=== PATIENT | female | born 1990 | race Caucasian/White ===

== ENCOUNTER → 2017-04-04 21:15 | Emergency (ER) | payer SELFPAY ==
[2017-04-04 21:30] VITALS: BP 143/87
== END | disposition left against medical advice (07) ==
LOC: ED 21:15
DX: R10.84 Generalized abdominal pain (principal); R11.10 Vomiting, unspecified; Z53.21 Procedure and treatment not carried out due to patient leaving prior to being seen by health care provider

== ENCOUNTER → 2017-10-15 14:22 | Emergency (ER) | payer SELFPAY ==
[~2017-10-15 14:22] MED LIST: Ketorolac INJ* 30 MG/ML 1 ML VIAL IV PUSH ONE; Lidocaine 1% INJ* 10 MG/ML 30 ML SDV INJ ONE; NS 0.9% 1000 ML*IV.FLUID IV ONE; Ondansetron INJ* 2 MG/ML VIAL IV ONE; Sulfamethox/Trimethoprim DS 800/160* TAB PO ONE; ceFAZolin 1 GM VIAL(*) 1 GM in NS 0.9% 50 ML* 50 ML IVPB ONE; oxyCODONE/Acetamin 5/325 MG* TAB PO ONE
--- NOTE | 2017-10-15 15:04 | ED ---
Skin Complaint - HPI Summary HPI Summary: 27F presents with abscess on right hip for 3 days. She states it started as a bug bite. She states the swelling to the area has gradually increased. She states she has become nauseous and vomiting from the pain. She admits to fever and chills. She denies any history of MRSA. She denies any abdominal pain, dysuria, cough, chest pain, SOB, flank pain, diarrhea or constipations. She has not taken anything for pain. pain is 10/10. She has no medical conditions. - History of Current Complaint Chief Complaint: EDNauseaVomitDiarrh Time Seen by Provider: 10/15/17 14:30 Stated Complaint: POSSIBLE INFECTION/VOMITTING Pain Intensity: 9 - Allergy/Home Medications Allergies/Adverse Reactions: Allergies Allergy/AdvReac Type Severity Reaction Status Date / Time Azithromycin Allergy Hives Verified 10/15/17 14:26 Nitrofurantoin Allergy Rash Verified 10/15/17 14:27 [From Macrobid] PMH/Surg Hx/FS Hx/Imm Hx Endocrine/Hematology History: Denies: Hx Anticoagulant Therapy, Hx Diabetes Cardiovascular History: Denies: Hx Hypertension Infectious Disease History: No Infectious Disease History: Denies: Traveled Outside the [place] in Last 30 Days - Family History Known Family History: Negative: Diabetes - Social History Alcohol Use: None Substance Use Type: Reports: None Smoking Status (MU): Light Every Day Tobacco Smoker Review of Systems Positive: Fever Negative: Chest Pain Negative: Shortness Of Breath Positive: Rash All Other Systems Reviewed And Are Negative: Yes Physical Exam Triage Information Reviewed: Yes Vital Signs On Initial Exam: Initial Vitals Temp Pulse Resp BP Pulse Ox 99.5 F 68 18 113/63 96 10/15/17 14:23 10/15/17 14:23 10/15/17 14:23 10/15/17 14:23 10/15/17 14:23 Vital Signs Reviewed: Yes Appearance: Positive: Well-Appearing Skin: Positive: Warm, Dry, Other - 4cm by 6cm area of eythema and loculation with minmial surround erythema on right hip Head/Face: Positive: Normal Head/Face Inspection Eyes: Positive: Normal, EOMI, JANES, Conjunctiva Clear ENT: Positive: Normal ENT inspection, Pharynx normal, TMs normal Respiratory/Lung Sounds: Positive: Clear to Auscultation, Breath Sounds Present Cardiovascular: Positive: Normal, RRR Abdomen Description: Positive: Nontender, Soft Bowel Sounds: Positive: Present Musculoskeletal: Positive: Normal, Strength/ROM Intact - right hip Neurological: Positive: Normal Psychiatric: Positive: Normal - Zack Coma Scale Coma Scale Total: 15 Procedures - Incision and Drainage Site: right hip Anesthesia: Local Instrument(s): Scalpel Diagnostics - Vital Signs Vital Signs Temp Pulse Resp BP Pulse Ox 10/15/17 14:23 99.5 F 68 18 113/63 96 - Laboratory Result Diagrams: 10/15/17 15:05 10/15/17 15:05 Lab Statement: Any lab studies that have been ordered have been reviewed, and results considered in the medical decision making process. Course/Dx - Course Course Of Treatment: 27F presents with abscess on right hip for 3 days. She states it started as a bug bite. She states the swelling to the area has gradually increased. She states she has become nauseous and vomiting from the pain. She admits to fever and chills. She denies any history of MRSA. She denies any abdominal pain, dysuria, cough, chest pain, SOB, flank pain, diarrhea or constipations. She has not taken anything for pain. pain is 10/ 10. She has no medical conditions. on exam has 4cm by 6cm abscess on right hip with minimial surround erythema. abdomen soft nontender. got septic work to be on safe side and gave dose of ancef. I&D abscess and got moderate amount of pus. patient does not currently have a fever and feels comfortable being discharge. can follow up with primary. will place on bactrim and keflex. patient understand and agrees with plan. - Differential Diagnoses - Skin Complaint Differential Diagnoses: Abscess, Cellulitis, Local Allergic Reaction - Diagnoses Provider Diagnoses: Abscess of right hip Discharge - Discharge Plan Condition: Good Disposition: HOME Prescriptions: Cephalexin CAP* [Keflex CAP*] 500 mg PO BID #19 cap Ondansetron ODT TAB* [Zofran 4 MG Odt TAB*] 4 mg PO Q6H PRN #20 tab.odt PRN Reason: Nausea Sulfamethox/Trimethoprim DS* [Bactrim DS 800/160 TAB*] 1 tab PO BID #19 tab Patient Education Materials: Abscess (ED) Forms: *Work Release Referrals: Edgar Foy MD [Primary Care Provider] - Additional Instructions: Take antibiotic both twice a day for 10 days, Apply warm compresses to area Take ibuprofen or Tylenol for pain every 6 hours Follow up with primary within 5 days Return to ED if develop fever, area of redness spreads, or any new or worsening symptoms
[2017-10-15 15:15] LABS: Hematocrit 41 % (35-47); Hemoglobin 13.7 g/dl (12.0-16.0); Mean Corpuscular HGB Conc 33 g/dl (31-36); Mean Corpuscular Hemoglobin 31 pg (27-31); Mean Corpuscular Volume 92 fL (80-97); Mean Platelet Volume 9 um3 (7.4-10.4); Red Blood Count 4.47 10^6/ul (4.0-5.4); Red Cell Distribution Width 14 % (10.5-15); White Blood Count 16.6 10^3/ul (3.5-10.8)
[2017-10-15 15:30] LABS: Albumin 4.4 g/dL (3.2-5.2); BUN/Creatinine Ratio 12.9 (8-20); Calcium 9.4 mg/dL (8.6-10.3); EGFR African American 150.8 (>60); EGFR Non-African American 117.3 (>60); Globulin 3.1 g/dL (2-4); Potassium 3.9 mmol/L (3.5-5.0); Total Bilirubin 0.6 mg/dL (0.2-1.0); Total Protein 7.5 g/dL (6.4-8.9)
[2017-10-15 17:00] VITALS: BP 95/71
--- NOTE | 2017-10-16 09:10 | ED ---
Progress - Progress Note Progress Note: Pt's cx reveals MRSA and staph aureus - d/c'd w/ bactrim and keflex. No change at this time. Course/Dx - Course Course Of Treatment: 27F presents with abscess on right hip for 3 days. She states it started as a bug bite. She states the swelling to the area has gradually increased. She states she has become nauseous and vomiting from the pain. She admits to fever and chills. She denies any history of MRSA. She denies any abdominal pain, dysuria, cough, chest pain, SOB, flank pain, diarrhea or constipations. She has not taken anything for pain. pain is 10/ 10. She has no medical conditions. on exam has 4cm by 6cm abscess on right hip with minimial surround erythema. abdomen soft nontender. got septic work to be on safe side and gave dose of ancef. I&D abscess and got moderate amount of pus. patient does not currently have a fever and feels comfortable being discharge. can follow up with primary. will place on bactrim and keflex. patient understand and agrees with plan. - Diagnoses Provider Diagnoses: Abscess of right hip
--- NOTE | 2017-10-18 08:47 | PN ---
Progress Note - Progress Note Date of Service: 10/18/17 Note: patient placed on bactrim which final wound culture shows that is sensitive to. no further action required.
== END | disposition home or self-care (01) ==
LOC: ED 14:22
DX: L02.415 Cutaneous abscess of right lower limb (principal); R50.9 Fever, unspecified; F17.210 Nicotine dependence, cigarettes, uncomplicated
CPT/HCPCS: 10060; 36415; 80053; 83605; 85025; 86141; 87040; 87070; 87077; 87186; 87205; 87640; 87641; 96374; 96375; 99282; A9270-GY; J0690; J1885; J2001; J2405

== ENCOUNTER 2018-05-07 15:45 | Emergency (ER) | payer BC, OTHER ==
[2018-05-07] MEDS ORDERED: NS 0.9% 1000 ML* 1,000 ML IV ONE (15:54)
[2018-05-07] MEDS ORDERED: cefTRIAXone(*) 1 GM in NS 0.9% 50 ML* 50 ML IVPB ONE ×2 (15:54→18:56)
[2018-05-07 16:48] LABS: ABS Basophils 0 10^3/ul (0-0.2); ABS Eosinophils 0.1 10^3/ul (0-0.6); ABS Lymphocytes 1.2 10^3/ul (1.0-4.8); ABS Monocytes 0.8 10^3/ul (0-0.8); ABS Neutrophils 10.5 10^3/ul (1.5-7.7); ABS Nucleated RBC 0 10^3/ul; Eosinophil % 0.4 % (0-6); Hematocrit 33 % (35-47); Hemoglobin 11.4 g/dl (12.0-16.0); Lymphocyte % 9.9 % (25-47); Mean Corpuscular HGB Conc 35 g/dl (31-36); Mean Corpuscular Hemoglobin 33 pg (27-31); Mean Corpuscular Volume 95 fL (80-97); Mean Platelet Volume 8.6 um3 (7.4-10.4); Nucleated Red Blood Cells % 0; Platelet Count 162 10^3/ul (150-450); Red Blood Count 3.48 10^6/ul (4.0-5.4); Red Cell Distribution Width 13 % (10.5-15); White Blood Count 12.6 10^3/ul (3.5-10.8)
[2018-05-07] MEDS ORDERED: Ondansetron ODT TAB* 4 MG PO ONE (16:48)
[2018-05-07 17:10] LABS: EGFR Non-African American 153.9 (>60)
[2018-05-07 18:03] LABS: Urine Appearance Clear; Urine Blood Negative (Negative); Urine Color Yellow; Urine Ketones 2+ (Negative); Urine Protein 1+(30 mg/dL) (Negative); Urine Specific Gravity 1.019 (1.010-1.030); Urine Urobilinogen Negative (Negative)
--- NOTE | 2018-05-07 18:56 | RAD ---
Indication: Flank pain. Real-time sonography of the kidneys was performed. The right kidney measures 10.8 x 5.6 x 5.4 cm. The left kidney measures 9.3 x 4.4 x 5.4 cm. No hydronephrosis is noted in either kidney. IMPRESSION: NO HYDRONEPHROSIS OF EITHER KIDNEY IS NOTED.
[2018-05-07] MEDS ORDERED: Acetaminophen TAB* 325 MG PO ONE (19:41)
--- NOTE | 2018-05-07 19:46 | ED ---
Ephraim Villeda Tiffany, scribed for Erick Perez MD on 05/07/18 at 1602 . Abdominal Pain/Female - HPI Summary HPI Summary: 27 year old F BIBA to [facility] complains of left flank pain that began at 08:00 this morning, radiates to the right flank. Rates the pain 6/10 in severity. Symptoms aggravated by nothing. Symptoms alleviated by nothing. Patient reports nausea, vomiting, back pain, fever, urinary frequency, burning with urination. Denies vaginal discharge and vaginal bleeding. Dx UTI 3 days ago, symptoms have worsened despite taking Keflex. Is 26 weeks . Has not felt baby move since this morning. /A0. Hx opioid abuse, has been sober for 4 months. - History of Current Complaint Stated Complaint: BACK PAINS Time Seen by Provider: 05/07/18 15:48 Hx Obtained From: Patient Onset/Duration: Lasting Hours - since this morning, Still Present Location: Flank - left Radiates: Yes Radiates to: Flank - right Aggravating Factor(s): Nothing Alleviating Factor(s): Nothing Associated Signs and Symptoms: Positive: Negative - vaginal discharge and vaginal bleeding, Other: - nausea, vomiting, back pain, fever, urinary frequency , burning with urination Allergies/Adverse Reactions: Allergies Allergy/AdvReac Type Severity Reaction Status Date / Time MS Azithromycin Allergy Hives Verified 10/15/17 14:26 [Azithromycin] MS Nitrofurantoin Allergy Rash Verified 10/15/17 14:27 [From Macrobid] Home Medications: Home Medications Bupropion XL* [Wellbutrin XL *] 150 mg PO DAILY 05/07/18 [History Confirmed 07/17] Cholecalciferol (Vitamin D3) [ Vitamin D3] 2,000 unit PO DAILY 05/07/18 [ History Confirmed 05/07/18] Vit 93/Iron Fum/Folic [ Formula A-Free] 1 tab PO DAILY [History Confirmed 05/07/18] PMH/Surg Hx/FS Hx/Imm Hx Previously Healthy: No Endocrine/Hematology History: Denies: Hx Anticoagulant Therapy, Hx Diabetes Cardiovascular History: Denies: Hx Hypertension History: Reports: Other Problems/Disorders - UTI Psychiatric History: Reports: Hx Substance Abuse - opioid - Family History Known Family History: Negative: Diabetes - Social History Alcohol Use: None Hx Substance Use: Yes Substance Use Type: Reports: Other - opioid Hx Tobacco Use: Yes Smoking Status (MU): Light Every Day Tobacco Smoker Review of Systems Positive: Fever Positive: Vomiting, Nausea Positive: burning, frequency, flank pain - left, radiating to right flank, other - NEGATIVE: vaginal bleeding, vaginal discharge Positive: Other - back pain All Other Systems Reviewed And Are Negative: Yes Physical Exam - Summary Physical Exam Summary: VITAL SIGNS: Reviewed. GENERAL: Patient is a well-developed and nourished (MALE OR FEMALE) who is lying comfortable in the stretcher. Patient is not in any acute respiratory distress. HEAD AND FACE: No signs of trauma. No ecchymosis, hematomas or skull depressions. No sinus tenderness. EYES: PERRLA, EOMI x 2, No injected conjunctiva, no nystagmus. EARS: Hearing grossly intact. Ear canals and tympanic membranes are within normal limits. MOUTH: Oropharynx within normal limits. NECK: Supple, trachea is midline, no adenopathy, no JVD, no carotid bruit, no c- spine tenderness, neck with full ROM. CHEST: Symmetric, no tenderness at palpation LUNGS: Clear to auscultation bilaterally. No wheezing or crackles. CVS: The patient is tachycardic. ABDOMEN: The patient has bilateral flank pain. Her abdomen is distended about the umbilicus consistent with 26-week . EXTREMITIES: FROM in all major joints, no edema, no cyanosis or clubbing. NEURO: Alert and oriented x 3. No acute neurological deficits. Speech is normal and follows commands. SKIN: Dry and warm Triage Information Reviewed: Yes Vital Signs On Initial Exam: Initial Vitals Temp Pulse Resp BP Pulse Ox 98.2 F 102 16 111/76 97 05/07/18 15:57 05/07/18 15:57 05/07/18 15:57 05/07/18 15:57 05/07/18 15:57 Vital Signs Reviewed: Yes Diagnostics - Vital Signs Vital Signs Temp Pulse Resp BP Pulse Ox 05/07/18 15:57 98.2 F 102 16 111/76 97 - Laboratory Lab Results: Lab Results 05/07/18 05/07/18 05/07/18 Range/Units 16:34 16:34 16:34 WBC 12.6 H (3.5-10.8) 10^3/ul RBC 3.48 L (4.0-5.4) 10^6/ul Hgb 11.4 L (12.0-16.0) g/dl Hct 33 L (35-47) % MCV 95 (80-97) fL MCH 33 H (27-31) pg MCHC 35 (31-36) g/dl RDW 13 (10.5-15) % Plt Count 162 (150-450) 10^3/ul MPV 8.6 (7.4-10.4) um3 Neut % (Auto) 83.0 (38-83) % Lymph % (Auto) 9.9 L (25-47) % Hamilton % (Auto) 6.5 (0-7) % Eos % (Auto) 0.4 (0-6) % Baso % (Auto) 0.2 (0-2) % Absolute Neuts (auto) 10.5 H (1.5-7.7) 10^3/ul Absolute Lymphs (auto) 1.2 (1.0-4.8) 10^3/ul Absolute Monos (auto) 0.8 (0-0.8) 10^3/ul Absolute Eos (auto) 0.1 (0-0.6) 10^3/ul Absolute Basos (auto) 0 (0-0.2) 10^3/ul Absolute Nucleated RBC 0 10^3/ul Nucleated RBC % 0 Sodium 134 L (139-145) mmol/L Potassium 3.7 (3.5-5.0) mmol/L Chloride 102 (101-111) mmol/L Carbon Dioxide 18 L (22-32) mmol/L Anion Gap 14 H (2-11) mmol/L BUN 11 (6-24) mg/dL Creatinine 0.49 L (0.51-0.95) mg/dL Est GFR ( Amer) 197.9 (>60) Est GFR (Non-Af Amer) 153.9 (>60) BUN/Creatinine Ratio 22.4 H (8-20) Glucose 69 L (70-100) mg/dL Lactic Acid 0.6 (0.5-2.0) mmol/L Calcium 8.6 (8.6-10.3) mg/dL Total Bilirubin 0.50 (0.2-1.0) mg/dL AST 12 L (13-39) U/L ALT 8 (7-52) U/L Alkaline Phosphatase 76 (34-104) U/L C-Reactive Protein 149.02 H (< 5.00) mg/L Total Protein 6.5 (6.4-8.9) g/dL Albumin 3.4 (3.2-5.2) g/dL Globulin 3.1 (2-4) g/dL Albumin/Globulin Ratio 1.1 (1-3) Lipase < 10 L (11.0-82.0) U/L Urine Color Urine Appearance Urine pH (5-9) Ur Specific Brea (1.010-1.030) Urine Protein (Negative) Urine Ketones (Negative) Urine Blood (Negative) Urine Nitrate (Negative) Urine Bilirubin (Negative) Urine Urobilinogen (Negative) Ur Leukocyte Esterase (Negative) Urine WBC (Auto) (Absent) Urine RBC (Auto) (Absent) Ur Squamous Epith Cells (Absent) Urine Bacteria (Absent) Urine Glucose (Negative) Urine Ascorbic Acid (Negative) 05/07/18 Range/Units 17:43 WBC (3.5-10.8) 10^3/ul RBC (4.0-5.4) 10^6/ul Hgb (12.0-16.0) g/dl Hct (35-47) % MCV (80-97) fL MCH (27-31) pg MCHC (31-36) g/dl RDW (10.5-15) % Plt Count (150-450) 10^3/ul MPV (7.4-10.4) um3 Neut % (Auto) (38-83) % Lymph % (Auto) (25-47) % Hamilton % (Auto) (0-7) % Eos % (Auto) (0-6) % Baso % (Auto) (0-2) % Absolute Neuts (auto) (1.5-7.7) 10^3/ul Absolute Lymphs (auto) (1.0-4.8) 10^3/ul Absolute Monos (auto) (0-0.8) 10^3/ul Absolute Eos (auto) (0-0.6) 10^3/ul Absolute Basos (auto) (0-0.2) 10^3/ul Absolute Nucleated RBC 10^3/ul Nucleated RBC % Sodium (139-145) mmol/L Potassium (3.5-5.0) mmol/L Chloride (101-111) mmol/L Carbon Dioxide (22-32) mmol/L Anion Gap (2-11) mmol/L BUN (6-24) mg/dL Creatinine (0.51-0.95) mg/dL Est GFR ( Amer) (>60) Est GFR (Non-Af Amer) (>60) BUN/Creatinine Ratio (8-20) Glucose (70-100) mg/dL Lactic Acid (0.5-2.0) mmol/L Calcium (8.6-10.3) mg/dL Total Bilirubin (0.2-1.0) mg/dL AST (13-39) U/L ALT (7-52) U/L Alkaline Phosphatase (34-104) U/L C-Reactive Protein (< 5.00) mg/L Total Protein (6.4-8.9) g/dL Albumin (3.2-5.2) g/dL Globulin (2-4) g/dL Albumin/Globulin Ratio (1-3) Lipase (11.0-82.0) U/L Urine Color Yellow Urine Appearance Clear Urine pH 5.0 (5-9) Ur Specific Brea 1.019 (1.010-1.030) Urine Protein 1+(30 mg/dl) A (Negative) Urine Ketones 2+ A (Negative) Urine Blood Negative (Negative) Urine Nitrate Negative (Negative) Urine Bilirubin Negative (Negative) Urine Urobilinogen Negative (Negative) Ur Leukocyte Esterase Trace A (Negative) Urine WBC (Auto) 1+(6-10/hpf) A (Absent) Urine RBC (Auto) 1+(3-5/hpf) A (Absent) Ur Squamous Epith Cells Present A (Absent) Urine Bacteria 2+ A (Absent) Urine Glucose Negative (Negative) Urine Ascorbic Acid * A (Negative) Result Diagrams: 05/07/18 16:34 05/07/18 16:34 Lab Statement: Any lab studies that have been ordered have been reviewed, and results considered in the medical decision making process. - Additional Comments Diagnostic Additional Comments: Renal US, per radiologist, shows NO HYDRONEPHROSIS OF EITHER KIDNEY IS NOTED. ED physician has reviewed this report. Abdominal Pain Fem Course/Dx - Course Course Of Treatment: This patient is a 27-year-old female who is 26 weeks presents to the emergency room via ambulance complaining that the patient has a UTI and she continues to have fevers, chills, nausea vomiting, and lower back pain. The patient reports that she is taking Keflex for approximately 3 days but the symptoms are getting worse. She states she was seen by the midwives and was sent to the restroom for further assessment. [place] shows a WBCs of 12.6 without bands, sodium 134, glucose 69, CRP of 149, urinalysis shows 1+ protein and 2+ ketones, trace leukocyte esterase, Newley has 1+ WBCs and 1+ red blood cells, squamous epithelial cells Presson and 2+ bacteria. Initially the patient was given IV fluids, she was given Rocephin and Zofran for the nausea and vomiting. At this time I discussed the case with Dr. Cortez and she requests for the patient to be discharged home at that she gets a renal ultrasound. Renal ultrasound impression no hydronephrosis of either kidney is noted. At this point the patient is eating and drinking and she has no nausea vomiting. Therefore Dr. Cortez requested for the patient discharged home with follow-up with her office. I gave her specific instructions to the patient that if she has more back pain, nausea vomiting, fevers the patient and shell return immediately to the emergency room for further workup and management. The patient understands and agrees. I discussed all the findings and test results with the patient. Patient was instructed to return to the emergency room immediately if any of the symptoms return or worsens. Plan of care was discussed with the patient and understands and agrees. All questions were answered at patient satisfaction. There were no further complaints or concerns. - Diagnoses Provider Diagnoses: UTI (urinary tract infection), Pyelonephritis - Provider Notifications Discussed Care Of Patient With: Minda Cortez Time Discussed With Above Provider: 17:58 Instructed by Provider To: Other - Dr. Cortez, [facility], recommends renal US. She was informed of patient's lab results. She recommends discharge, if US is negative, with prescription for Zofran and to continue PO antibiotics. Discharge - Sign-Out/Discharge Documenting (check all that apply): Discharge/Admit/Transfer - Discharge Plan Condition: Stable Disposition: HOME Prescriptions: Ondansetron ODT TAB* [Zofran 4 MG Odt TAB*] 4 mg PO Q8H PRN #10 tab.odt PRN Reason: Vomiting Patient Education Materials: Urinary Tract Infection in (ED) Referrals: Edgar Foy MD [Primary Care Provider] - Minda Cortez MD [Medical Doctor] - 3 Days Additional Instructions: FOLLOW UP WITH [facility], IN 3 DAYS. RETURN TO THE EMERGENCY DEPARTMENT FOR ANY WORSENING OR NEW SYMPTOMS. - Billing Disposition and Condition Condition: STABLE Disposition: Home The documentation as recorded by the Ephraim sheldon Tiffany accurately reflects the service I personally performed and the decisions made by , Erick Perez MD.
[2018-05-07 20:03] VITALS: BP 89/73
== END 2018-05-07 19:59 | disposition home or self-care (01) ==
LOC: ED 15:45
DX: O23.02 Infections of kidney in pregnancy, second trimester (principal); O23.42 Unspecified infection of urinary tract in pregnancy, second trimester; O99.332 Smoking (tobacco) complicating pregnancy, second trimester; F17.200 Nicotine dependence, unspecified, uncomplicated; Z3A.26 26 weeks gestation of pregnancy; Z88.3 Allergy status to other anti-infective agents; Z88.8 Allergy status to other drugs, medicaments and biological substances
CPT/HCPCS: 36415; 76775; 80053; 81003; 81015; 83605; 83690; 85025; 86140; 87040; 87086; 96361; 96365; 99283; A9270-GY; J0696

== ENCOUNTER 2018-07-31 00:34 | Inpatient (IN) | payer OTHER ==
[2018-07-31 00:56] LABS: Hematocrit 31 % (35-47); Hemoglobin 10.5 g/dl (12.0-16.0); Mean Corpuscular HGB Conc 34 g/dl (31-36); Mean Corpuscular Hemoglobin 30 pg (27-31); Mean Corpuscular Volume 88 fL (80-97); Mean Platelet Volume 8.9 um3 (7.4-10.4); Platelet Count 155 10^3/ul (150-450); Red Blood Count 3.55 10^6/ul (4.00-5.40); Red Cell Distribution Width 13 % (10.5-15); White Blood Count 8.1 10^3/ul (3.5-10.8)
--- NOTE | 2018-07-31 02:13 | HP ---
General Information - Reason for Visit Patient is currently 37 2/7 weeks who presented with complaints of LOF and vaginal bleeding. - General Information Maternal Age: 28 Grav: 4 Para: 3 SAB: 0 IEA: 0 Estimated Due Date: 08/18/18 Determined By: 20 week Gestational Age in Weeks/Days: 37 2/7 Maternal Blood Type and Rh: A Positive - Results this Serology/RPR Result: Non-Reactive Rubella Result: Immune HBsAg Result: Negative HIV Result: Negative GBS Culture Result: Negative Past Medical History Delivery History: Hx C/Section, See Records Pertinent Past Medical History: See Records Past Medical History Comment: Medical history Hx of brain tumor( malignant per patient-unable to confirm via records) Migraine headaches Pyelonephritis Bipolar disorder Depression Substance abuse disorder (THC, Opiates, Cocaine) currently on Subutex on Rehab at [facility]. Asthma Past Surgical History Comment: Section 2016 Appendectomy Removal of intestinal cyst Pertinent Family History: See Records - Epilepsy - Antepartal Records Antepartal Records: Reviewed, Complicated by: - Poor compliance with care, Prior section, Tobacco use disorder Review of Systems Constitutional: Comfortable CV Complaint: No Respiratory: Shortness of Breath: No Gastrointestinal: No Nausea/Vomiting, Normal Bowel Movement Genitourinary: Bleeding, Leaking Fluid - Grossly ruptured Musculoskeletal: No Complaint, No Epigastric Pain Neurological: No Headache, No Visual Changes Movement: Normal Exam Allergies/Adverse Reactions: Allergies azithromycin Allergy (Verified 07/31/18 00:43) Nausea And Vomiting nitrofurantoin [From Macrobid] Allergy (Verified 07/31/18 00:43) Nausea And Vomiting Temp 97.8 BP 120 78 P 82 RR 16 POx 100% RA Lab Values - Entire Visit: Laboratory Tests 07/31/18 07/31/18 00:48 00:48 WBC 8.1 RBC 3.55 L Hgb 10.5 L Hct 31 L MCV 88 MCH 30 MCHC 34 RDW 13 Plt Count 155 MPV 8.9 Blood Type A Positive - Measurements Height: 5 ft Weight: 150 lb Weight in lbs: [id number] Body Mass Index (BMI): 29.2 Pre- Weight: 115 lb Weight Gained This : 35 lbs and 0 ozs - Exam Breast: Breast Exam Deferred CVA: No CVA Tenderness Extremities: No Edema Heart: Normal Rhythm/Heart Sounds HEENT: No Significant Findings Lungs: Clear Bilaterally Rectal: Rectal Exam Deferred Reflexes: DTR 2+ Thyroid: No Thyromegaly - Abdominal Exam Abdomen Exam: Non-Tender, Fundal Height Consistent with Dates Targeted Exam Findings See L&D Outpatient Visit Provider Note for Findings: N/A Cervical Exam: 1cm Effacement: Thick Station: -3 Presenting Part: Vertex Membrane Status: SROM Amniotic Fluid Evaluation: Gross Rupture, Clear, Bloody EFM Findings - External Monitor Findings Baseline Heart Rate: 140 External Monitor Findings: Accelerations Present Contractions: Irregular Assessment/Plan - Obstetrical Risk Factors Obstetrical Risk Factors: Substance Abuse, Tobacco Use Risk Factors Comment: Prior Section desires - Plan Plan: IV Hydration, Admit - Anticipate Vaginal Delivery - Date/Time of Admission Date of Admission: 07/31/18 Time of Admission: 02:00
[2018-07-31] MEDS ORDERED: Calcium Carbonate CHEW TAB* 500 MG (TUMS) ONE ×2 (07:11→12:31)
[2018-07-31] MEDS: Buprenorphine TAB* 2 MG TAB.SL SL SCH (11:39)
[2018-07-31] MEDS ORDERED: Oxytocin in LR* 20 UNITS/1,000 ML BAG IVPB SCH (18:00)
[2018-07-31] MEDS ORDERED: Promethazine INJ(RESTRICTED)* 25 MG/ML 1 ML VIAL IV PRN (21:15)
[2018-07-31] MEDS: Nalbuphine* 10 MG/ML 1 ML VIAL IV PRN (21:28)
[2018-08-01] MEDS: Calcium Carbonate CHEW TAB* 500 MG (TUMS) PO PRN ×2 (04:18→15:42)
[2018-08-01] MEDS ORDERED: Nalbuphine* 10 MG/ML 1 ML VIAL IV PRN (05:03)
[2018-08-01] MEDS ORDERED: Promethazine INJ(RESTRICTED)* 25 MG/ML 1 ML VIAL IV PRN (05:03)
[2018-08-01 08:09] LABS: ABS Basophils 0 10^3/ul (0-0.2); ABS Eosinophils 0.1 10^3/ul (0-0.6); ABS Lymphocytes 1.9 10^3/ul (1.0-4.8); ABS Monocytes 0.5 10^3/ul (0-0.8); ABS Neutrophils 4.8 10^3/ul (1.5-7.7); ABS Nucleated RBC 0 10^3/ul; Eosinophil % 1.7 % (0-6); Hematocrit 27 % (35-47); Lymphocyte % 26.1 % (25-47); Mean Corpuscular HGB Conc 34 g/dl (31-36); Mean Corpuscular Hemoglobin 30 pg (27-31); Mean Corpuscular Volume 88 fL (80-97); Mean Platelet Volume 9.2 um3 (7.4-10.4); Nucleated Red Blood Cells % 0.1; Platelet Count 133 10^3/ul (150-450); Red Blood Count 3.03 10^6/ul (4.00-5.40); Red Cell Distribution Width 13 % (10.5-15); White Blood Count 7.4 10^3/ul (3.5-10.8)
[2018-08-01] MEDS ORDERED: Sodium Citrate/Citric Acid* 15 ML UDC ONE (08:09)
[2018-08-01] MEDS ORDERED: ceFOXitin 2 GM IVPREMIX* 2 GM/50 ML BAG ONE (08:11)
[2018-08-01] MEDS ORDERED: Chloroprocaine 3%* 20 ML VIAL ONE (08:24)
[2018-08-01] MEDS ORDERED: OXYTOCIN* 10 UNITS/ML 1 ML VIAL ONE (08:25)
[2018-08-01] MEDS ORDERED: Dexamethasone IV* 4 MG/ML 1 ML (4 MG) ONE (08:25)
[2018-08-01] MEDS ORDERED: Ondansetron INJ* 2 MG/ML VIAL ONE (08:25)
[2018-08-01] MEDS ORDERED: fentaNYL* 50 MCG/ML 2 ML VIAL (100 MCG VIAL) ONE (09:01)
[2018-08-01] MEDS ORDERED: Phenylephrine IV* 40 MCG/ML 10 ML SYRINGE ONE (09:21)
[2018-08-01] MEDS ORDERED: DiMENhydriNATE IV* 50 MG/ML VIAL IV PUSH PRN (09:34)
[2018-08-01] MEDS ORDERED: Naloxone* 0.4 MG/ML 1 ML VIAL IV PRN (09:34)
[2018-08-01] MEDS ORDERED: Acetaminophen IV 1GM/100ML * 1,000 MG/100 ML VIAL IVPB ONE (09:34)
[2018-08-01] MEDS ORDERED: fentaNYL* 50 MCG/ML 2 ML VIAL (100 MCG VIAL) IV PRN (09:34)
[2018-08-01] MEDS ORDERED: Ketorolac INJ* 30 MG/ML 1 ML VIAL IV PRN (09:34)
[2018-08-01] MEDS ORDERED: diPHENhydraMINE IV* 50 MG/ML 1 ml VIAL (BENADRYL) IV PRN (09:36)
[2018-08-01] MEDS ORDERED: EPHEDrine (Pressors)* 50 MG/ML VIAL IV PUSH PRN (09:36)
[2018-08-01] MEDS ORDERED: Ondansetron INJ* 2 MG/ML VIAL IV PRN (09:36)
[2018-08-01] MEDS ORDERED: PROCHLORPERAZINE INJ 5 MG/ML 2 ML VIAL IV PRN (09:36)
[2018-08-01] MEDS ORDERED: Ropivacaine* 300 MG in NS 0.9% 250 ML* 240 ML EPIDURAL SCH (10:00)
[2018-08-01] MEDS ORDERED: Glycerin ADULT SUPP PR PRN (10:16)
[2018-08-01] MEDS: Buprenorphine TAB* 2 MG TAB.SL SL SCH ×2 (10:31→17:52)
[2018-08-01] MEDS: Simethicone TAB* 80 MG TAB.CHEW PO SCH ×3 (12:39→19:48)
[2018-08-01] MEDS: Docusate CAP* 100 MG PO SCH ×2 (15:42→19:49)
[2018-08-01] MEDS ORDERED: Acetaminophen TAB* 325 MG PO SCH (17:00)
[2018-08-01] MEDS ORDERED: Ketorolac INJ* 30 MG/ML 1 ML VIAL IV SCH (18:00)
[2018-08-01] MEDS: Ketorolac INJ* 30 MG/ML 1 ML VIAL IV SCH ×2 (18:06→23:57)
[2018-08-01] MEDS: Acetaminophen TAB* 325 MG PO SCH (19:49)
--- NOTE | 2018-08-01 22:32 | OP ---
OPERATIVE NOTE: DATE OF OPERATION: 08/01/18 DATE OF : 89 SURGEON: Dione Gunter MD INVERFORM MACHINE OPERATOR: Edgar Monsivais MD ANESTHESIA: Epidural. PRE-OP DIAGNOSES: Intrauterine gestation at 37 and 4 weeks, prior section, premature rupture of membranes, failed induction of labor. POST-OP DIAGNOSES: Intrauterine gestation at 37 and 4 weeks, prior section, premature rupture of membranes, failed induction of labor, placental abruption and compound presentation. OPERATIVE PROCEDURE: Repeat lower transverse section. ESTIMATED BLOOD LOSS: 700 mL. SPECIMEN: Placenta. FLUIDS: Crystalloid. DRAINS: Larios. FINDINGS: Male infant. Apgars 9 and 9, weight 5 pounds 14 ounces. Normal- appearing uterus, ovaries, and tubes; thinned lower uterine segment. Placenta with old blood clots consistent with abruption. Baby presented with compound presentation with the foot beside his head. INDICATIONS: The patient presented to Labor and Delivery with a premature rupture of membranes and significant vaginal bleeding. FHT was Cat 1 and the bleeding slowly decreased over time. She had 1 prior CS but was counseled thoroughly and desired TOLAC. She was having irregular contractions, but did not have any cervical change, and therefore was started on low-dose Pitocin. This was increased slowly over the course of 20 hours. During this time, though she made no cervical change and therefore the decision was made to proceed with section. heart tracing remained category I during the entire time. DESCRIPTION OF PROCEDURE: After informed consent was signed, the patient was taken to the operating room where she was given an epidural anesthesia that was found to be adequate. She was prepped and draped in the dorsal supine position with a leftward tilt. A Pfannenstiel skin incision was made with a scalpel and carried down to the underlying layer of fascia with the Bovie. The fascia was incised on either side of the midline and the fascial incision extended laterally with sharp dissection. The inferior edge of the fascial incision was grasped with Arias clamps, tented up, and dissected down with a combination of sharp and blunt dissection. Then, the superior edge of the fascial incision was grasped with Arias clamps, tented up, and dissected down with the combination of sharp and blunt dissection. The rectus muscles were in the midline and the peritoneum was entered bluntly. The peritoneal incision was extended laterally with blunt pressure. The bladder blade was inserted and a bladder flap was made in the vesicouterine peritoneum with the Metzenbaum scissors. The bladder blade was reinserted and an incision was made in the lower uterine segment with the scalpel. The uterine incision was extended superiorly and inferiorly with blunt pressure. The infant's head was there but a foot was also found presenting at the incision, this was pushed back into the uterus and the head was delivered with fundal pressure followed by the rest of the body. The cord was milked towards the baby and clamped x2 after a minute and was cut. The baby was handed to the customer service analyst. Cord blood was collected. The placenta then delivered with fundal massage and gentle cord traction. The uterus was exteriorized and covered with a moist lap. The uterus was cleared of clots and debris. The uterine incision was then closed with 0 Vicryl in a running locked fashion with the second layer of suture imbricating the first. The abdomen was irrigated and a hematoma was noted on the right side of the incision. A figure-of- eight suture of 3-0 Vicryl was placed around the hematoma with good hemostasis noted and no evidence of the hematoma expanding. Good hemostasis was noted throughout the length of the uterine incision. The uterus was then placed back into the abdominal cavity. The peritoneum was closed with 3-0 vicryl in a running unlocked fashion. The fascia was closed with 0-Vicryl in a running unlocked fashion. Good hemostasis was achieved with use of Bovie cautery. The skin was then closed with 4-0 Monocryl in a running subcuticular fashion. The incision was cleaned. Mastisol and Steri-Strips were placed. The dressing was placed, the patient was awake, moved to the stretcher and taken to the recovery room in stable condition. [id number] #: [id number] PHI
[2018-08-02] MEDS: Nalbuphine* 10 MG/ML 1 ML VIAL IV PRN (03:15)
[2018-08-02] MEDS: Acetaminophen TAB* 325 MG PO SCH (03:15)
[2018-08-02] MEDS ORDERED: oxyCODONE/Acetamin 5/325 MG* TAB PO PRN (06:00)
[2018-08-02] MEDS ORDERED: Acetaminophen TAB* 325 MG PO PRN (06:00)
[2018-08-02 06:39] LABS: ABS Basophils 0.1 10^3/ul (0-0.2); ABS Eosinophils 0 10^3/ul (0-0.6); ABS Monocytes 0.9 10^3/ul (0-0.8); ABS Neutrophils 8.7 10^3/ul (1.5-7.7); ABS Nucleated RBC 0 10^3/ul; Eosinophil % 0 % (0-6); Hematocrit 20 % (35-47); Hemoglobin 6.6 g/dl (12.0-16.0); Lymphocyte % 16.8 % (25-47); Mean Corpuscular HGB Conc 33 g/dl (31-36); Mean Corpuscular Hemoglobin 29 pg (27-31); Mean Corpuscular Volume 88 fL (80-97); Nucleated Red Blood Cells % 0.1; Platelet Count 153 10^3/ul (150-450); Red Blood Count 2.27 10^6/ul (4.00-5.40); Red Cell Distribution Width 13 % (10.5-15); White Blood Count 11.6 10^3/ul (3.5-10.8)
[2018-08-02] MEDS: Ketorolac INJ* 30 MG/ML 1 ML VIAL IV SCH (06:55)
[2018-08-02] MEDS: oxyCODONE/Acetamin 5/325 MG* TAB PO PRN ×3 (08:16→19:29)
[2018-08-02] MEDS: Simethicone TAB* 80 MG TAB.CHEW PO SCH ×4 (09:21→20:32)
[2018-08-02] MEDS: Ferrous Gluconate TAB* 324 MG TAB PO SCH ×2 (09:21→20:32)
[2018-08-02] MEDS: Docusate CAP* 100 MG PO SCH ×3 (09:21→20:33)
[2018-08-02] MEDS: Buprenorphine TAB* 2 MG TAB.SL SL SCH ×2 (09:23→17:01)
[2018-08-02] MEDS ORDERED: Nicotine GUM* 2 MG PO PRN (10:50)
[2018-08-02] MEDS: Ibuprofen TAB* 600 MG PO PRN ×2 (13:01→19:30)
[2018-08-03] MEDS: oxyCODONE/Acetamin 5/325 MG* TAB PO PRN ×5 (00:59→20:23)
[2018-08-03] MEDS: Ibuprofen TAB* 600 MG PO PRN ×3 (01:39→16:15)
[2018-08-03] MEDS: Docusate CAP* 100 MG PO SCH ×3 (08:33→20:20)
[2018-08-03] MEDS: Ferrous Gluconate TAB* 324 MG TAB PO SCH ×2 (09:29→20:20)
[2018-08-03] MEDS: Simethicone TAB* 80 MG TAB.CHEW PO SCH ×3 (09:29→20:20)
[2018-08-03] MEDS: Buprenorphine TAB* 2 MG TAB.SL SL SCH ×2 (09:29→17:29)
[2018-08-03 09:49] LABS: ABS Basophils 0 10^3/ul (0-0.2); ABS Eosinophils 0.2 10^3/ul (0-0.6); ABS Lymphocytes 2.1 10^3/ul (1.0-4.8); ABS Monocytes 0.5 10^3/ul (0-0.8); ABS Neutrophils 5.1 10^3/ul (1.5-7.7); ABS Nucleated RBC 0 10^3/ul; Eosinophil % 2.2 % (0-6); Hematocrit 21 % (35-47); Hemoglobin 6.8 g/dl (12.0-16.0); Lymphocyte % 26.9 % (25-47); Mean Corpuscular HGB Conc 33 g/dl (31-36); Mean Corpuscular Hemoglobin 30 pg (27-31); Mean Corpuscular Volume 90 fL (80-97); Mean Platelet Volume 8.2 um3 (7.4-10.4); Nucleated Red Blood Cells % 0; Platelet Count 178 10^3/ul (150-450); Red Blood Count 2.31 10^6/ul (4.00-5.40); Red Cell Distribution Width 13 % (10.5-15); White Blood Count 7.9 10^3/ul (3.5-10.8)
[2018-08-04] MEDS: Ibuprofen TAB* 600 MG PO PRN ×2 (04:49→16:56)
[2018-08-04] MEDS: oxyCODONE/Acetamin 5/325 MG* TAB PO PRN ×3 (04:49→13:41)
[2018-08-04 08:45] VITALS: BP 124/77
[2018-08-04] MEDS: Docusate CAP* 100 MG PO SCH ×2 (09:10→13:41)
[2018-08-04] MEDS: Ferrous Gluconate TAB* 324 MG TAB PO SCH (09:11)
[2018-08-04] MEDS: Simethicone TAB* 80 MG TAB.CHEW PO SCH ×3 (09:11→16:56)
[2018-08-04] MEDS: Buprenorphine TAB* 2 MG TAB.SL SL SCH ×2 (09:12→16:56)
== END 2018-08-04 17:22 | disposition home or self-care (01) | DRG 540 ==
LOC: MCHOBOUT 00:34 → MCHOB 01:05 → EEVIPCON 01:05 → MCHOB 08-01 10:05
PROVIDERS: ADMIT Obstetrics & Gynecology; ATTEND Obstetrics & Gynecology
PROC: 3E033VJ Introduction of Other Hormone into Peripheral Vein, Percutaneous Approach (ICD-10-PCS; 2018-08-01)
PROC: 10907ZC Drainage of Amniotic Fluid, Therapeutic from Products of Conception, Via Natural or Artificial Opening (ICD-10-PCS; 2018-08-01)
PROC: 10D00Z1 Extraction of Products of Conception, Low, Open Approach (ICD-10-PCS; principal; 2018-08-01 08:36)
DX: O61.0 Failed medical induction of labor (principal); O45.93 Premature separation of placenta, unspecified, third trimester; O42.02 Full-term premature rupture of membranes, onset of labor within 24 hours of rupture; O32.6XX0 Maternal care for compound presentation, not applicable or unspecified; O99.334 Smoking (tobacco) complicating childbirth; F17.210 Nicotine dependence, cigarettes, uncomplicated; O99.344 Other mental disorders complicating childbirth; F31.9 Bipolar disorder, unspecified; O99.52 Diseases of the respiratory system complicating childbirth; J45.909 Unspecified asthma, uncomplicated; F11.21 Opioid dependence, in remission; F14.21 Cocaine dependence, in remission; O66.41 Failed attempted vaginal birth after previous cesarean delivery; O34.211 Maternal care for low transverse scar from previous cesarean delivery; O90.81 Anemia of the puerperium; D64.9 Anemia, unspecified; Z3A.37 37 weeks gestation of pregnancy; Z37.0 Single live birth
CPT/HCPCS: 36415; 80307; 85025; 85027; 86850; 86900; 86901; A9270-GY; J0694; J1100; J1885; J2300; J2400; J2405; J2550; J2590; J2795; J3010